=== PATIENT | male | born 1945 | race Caucasian/White ===

== ENCOUNTER 2020-05-30 10:21 | Inpatient (IN) | payer MEDICARE, BC ==
[~2020-05-30] VITALS: Ht 172.7 cm; Wt 104.3 kg
[2020-05-30 10:45] LABS: BASOPHILS % 0.9 % (0.0-1.0); EOSINOPHILS # (AUTO) 0.2 (0.0-0.4); EOSINOPHILS % 6.8 % (0.0-6.0); HEMATOCRIT 35.4 % (38.2-49.6); HEMOGLOBIN 12.1 g/dL (14.0-18.0); LYMPHOCYTES # (AUTO) 0.6 (1.0-3.2); LYMPHOCYTES % 16.5 % (18.0-39.1); MEAN CORPUSCULAR HEMOGLOBIN 34.6 pg (28-32); MEAN CORPUSCULAR HGB CONC 34.2 g/dL (31-35); MEAN CORPUSCULAR VOLUME 101.1 fL (81-99); MONOCYTES # (AUTO) 0.3 (0.2-0.8); MONOCYTES % 9.1 % (4.4-11.3); NEUTROPHILS # (AUTO) 2.2 (2.1-6.9); NEUTROPHILS % 64.6 % (38.7-80.0); PLATELET COUNT 159 x10e3/uL (140-360); RED CELL DISTRIBUTION WIDTH 13.5 % (11.7-14.4)
[2020-05-30] MEDS ORDERED: ASPIRIN 81 MG CHEW TAB PO ONE (10:45)
[2020-05-30] MEDS ORDERED: NITROGLYCERIN 0.4 MG SUBL SL PRN (10:45)
[2020-05-30] MEDS ORDERED: MORPHINE SULFATE 2 MG/ML SYR 1ML IV PRN (10:45)
[2020-05-30] MEDS ORDERED: ONDANSETRON HCL INJ 2MG/ML 2ML 2 MG/ML VIAL IV PRN (10:45)
[2020-05-30 11:02] LABS: INR 0.89; PROTHROMBIN TIME 12.5 seconds (11.9-14.5)
[2020-05-30 11:05] LABS: ALANINE AMINOTRANSFERASE 21 IU/L (0-55); ALBUMIN 4.3 g/dL (3.5-5.0); ALBUMIN/GLOBULIN RATIO 1.9 (0.8-2.0); ALKALINE PHOSPHATASE 82 IU/L (40-150); ANION GAP 15.5 mmol/L (8-16); BLOOD UREA NITROGEN 16 mg/dL (7-26); BUN/CREATININE RATIO 18 (6-25); CALCIUM 8.8 mg/dL (8.4-10.2); CARBON DIOXIDE 25 mmol/L (22-29); CHLORIDE 105 mmol/L (98-107); CREATININE, SERUM 0.91 mg/dL (0.72-1.25); EST GLOMERULAR FILTRATION RATE > 60 ML/MIN (60-); GLUCOSE 95 mg/dL (74-118); POTASSIUM 4.5 mmol/L (3.5-5.1); SODIUM 141 mmol/L (136-145)
[2020-05-30 11:22] LABS: PARTIAL THROMBOPLASTIN TIME 23.8 seconds (23.8-35.5)
--- NOTE | 2020-05-30 11:52 | Emergency Department Note ---
History of Present Illnes History of Present Illness Chief Complaint: Chest Pain History of Present Illness This is a 74 year old male pt c/o chest pressure that started this morning, pt states that he has had 6 episodes since this morning, intermittent chest pain that feels like a sudden sharp pain but goes away after a few seconds, pt denies taking ASA or NTG en route, sent by Dr. Pulido. Historian: Patient Arrival Mode: Car Sports Medicine Coordinator Required: No Onset (how long ago): hour(s) Location: right chest Quality: pain Radiation: Reports non-radiation Severity: moderate Timing of current episode: intermittent Progression: waxing and waning (lasts only seconds) Chronicity: recurrent Context: Denies recent illness Relieving factors: none Exacerbating factors: none Associated symptoms: Reports denies other symptoms Past Medical/Family History Physician Review I have reviewed the patient's past medical and family history. Any updates have been documented here. Past Medical History Recent Fever: No Clinical Suspicion of Infectio: No New/Unexplained Change in Ment: No Past Medical History: Hypertension, NH, CAD Other Medical History: Prostate Cancer 2015, Colon Cancer 2019 Past Surgical History: CABG Other Surgery: cardiac stents Social History Smoking Cessation: Former smoker Counseling Performed: No Alcohol Use: None Any Illegal Drug Use: No TB Exposure/Symptoms: No Physically hurt or threatened: No Family History Family history of heart diseas: No Other Any Pre-Existing Lines (PICC,: No Review of Systems Review of Systems Constitutional: Reports no symptoms EENTM: Reports no symptoms Cardiovascular: Reports as per HPI Respiratory: Reports no symptoms Gastrointestinal: Reports no symptoms Genitourinary: Reports no symptoms Musculoskeletal: Reports no symptoms Integumentary: Reports no symptoms Neurological: Reports no symptoms Psychological: Reports no symptoms Endocrine: Reports no symptoms Hematological/Lymphatic: Reports no symptoms Physical Exam Related Data Allergies: Coded Allergies: No Known Allergies (Unverified , 05/30/20) Triage Vital Signs Vital Signs Date Time Temp Pulse Resp B/P (MAP) Pulse Ox O2 Delivery O2 Flow Rate FiO2 05/30/20 10:28 63 17 148/88 98 Room Air 05/30/20 10:35 98.1 Vital signs reviewed: Yes Physical Exam CONSTITUTIONAL Constitutional: Present well-developed, Present well-nourished HENT HENT: Present normocephalic, Present atraumatic, Present oropharynx clear/moist, Present nose normal HENT L/R: Present left ext ear normal, Present right ext ear normal EYES Eyes: Reports PERRL, Reports conjunctivae normal NECK Neck: Present ROM normal PULMONARY Pulmonary: Present effort normal, Present breath sounds normal CARDIOVASCULAR Cardiovascular: Present regular rhythm, Present heart sounds normal, Present capillary refill normal, Present normal rate, Present other (no chest wall tenderness) GASTROINTESTINAL Abdominal: Present soft, Present nontender, Present bowel sounds normal GENITOURINARY Genitourinary: Present exam deferred SKIN Skin: Present warm, Present dry MUSCULOSKELETAL Musculoskeletal: Present ROM normal NEUROLOGICAL Neurological: Present alert, Present oriented x 3, Present no gross motor or sensory deficits PSYCHOLOGICAL Psychological: Present mood/affect normal, Present judgement normal Results Laboratory Result Diagram: 05/30/20 1040 05/30/20 1040 Laboratory Laboratory Tests Test 05/30/20 10:40 White Blood Count 3.40 x10e3/uL (4.8-10.8) Red Blood Count 3.50 x10e6/uL (4.3-5.7) Hemoglobin 12.1 g/dL (14.0-18.0) Hematocrit 35.4 % (38.2-49.6) Mean Corpuscular Volume 101.1 fL (81-99) Mean Corpuscular Hemoglobin 34.6 pg (28-32) Mean Corpuscular Hemoglobin Concent 34.2 g/dL (31-35) Red Cell Distribution Width 13.5 % (11.7-14.4) Platelet Count 159 x10e3/uL (140-360) Neutrophils (%) (Auto) 64.6 % (38.7-80.0) Lymphocytes (%) (Auto) 16.5 % (18.0-39.1) Monocytes (%) (Auto) 9.1 % (4.4-11.3) Eosinophils (%) (Auto) 6.8 % (0.0-6.0) Basophils (%) (Auto) 0.9 % (0.0-1.0) Neutrophils # (Auto) 2.2 (2.1-6.9) Lymphocytes # (Auto) 0.6 (1.0-3.2) Monocytes # (Auto) 0.3 (0.2-0.8) Eosinophils # (Auto) 0.2 (0.0-0.4) Basophils # (Auto) 0.0 (0.0-0.1) Absolute Immature Granulocyte (auto 0.07 x10e3/uL (0-0.1) Prothrombin Time 12.5 seconds (11.9-14.5) Prothromb Time International Ratio 0.89 Activated Partial Thromboplast Time 23.8 seconds (23.8-35.5) Sodium Level 141 mmol/L (136-145) Potassium Level 4.5 mmol/L (3.5-5.1) Chloride Level 105 mmol/L (98-107) Carbon Dioxide Level 25 mmol/L (22-29) Anion Gap 15.5 mmol/L (8-16) Blood Urea Nitrogen 16 mg/dL (7-26) Creatinine 0.91 mg/dL (0.72-1.25) Estimat Glomerular Filtration Rate > 60 ML/MIN (60-) BUN/Creatinine Ratio 18 (6-25) Glucose Level 95 mg/dL (74-118) Calcium Level 8.8 mg/dL (8.4-10.2) Total Bilirubin 0.7 mg/dL (0.2-1.2) Aspartate Amino Transf (AST/SGOT) 25 IU/L (5-34) Alanine Aminotransferase (ALT/SGPT) 21 IU/L (0-55) Alkaline Phosphatase 82 IU/L (40-150) Creatine Kinase MB 4.10 ng/mL (0-5.0) Troponin I 0.006 ng/mL (0-0.300) B-Type Natriuretic Peptide 25.9 pg/mL (0-100) Total Protein 6.6 g/dL (6.5-8.1) Albumin 4.3 g/dL (3.5-5.0) Globulin 2.3 g/dL (2.3-3.5) Albumin/Globulin Ratio 1.9 (0.8-2.0) Lab results reviewed: Yes Imaging Imaging results reviewed: Yes Procedures 12 Lead ECG Interpretation ECG Interpretation : ECG: ECG 1 Sports Medicine Coordinator: Interpreted by ED physician Date: May 30, 2020 Time: 10:23 Prior ECG tracings: reviewed Rhythm: sinus rhythm (with 1st degree AVB) Rate: normal BPM: 63 QRS axis: normal ST segments normal: Yes T wave inversion: III Q waves: III Clinical Impression: abnormal ECG Additional Comments poor RWP Assessment & Plan Medical Decision Making MDM chest pain with h/o CAD stents in LAD and known lesions in RCA which were not stented at that time (~60%) - cbc, chem, ecg, cardiacs, cxr - r/o STEMI/NSTEMI, non-cardiac causes, pneumonia Reassessment Reassessment admit to Dr Pulido who came to ER to see pt Assessment & Plan Final Impression: (1) Chest pain Depart Disposition: ADMITTED Last Vital Signs Date Time Temp Pulse Resp B/P (MAP) Pulse Ox O2 Delivery O2 Flow Rate FiO2 05/30/20 10:35 98.1 65 14 154/87 98 05/30/20 10:28 Room Air KIERRA STORM MD May 30, 2020 11:52
[2020-05-30 12:04] LABS: CREATINE KINASE 150 IU/L (30-200)
[2020-05-30] MEDS ORDERED: [UNRECOGNIZED DRUG - OTHER] PO (12:24)
[2020-05-30] MEDS ORDERED: B COMPLEX1 EACH PO (12:24)
[2020-05-30] MEDS ORDERED: PRAVASTATIN SOD40 MG PO (12:24)
[2020-05-30] MEDS ORDERED: NEXIUM20 MG PO (12:24)
[2020-05-30] MEDS ORDERED: LOSARTAN POTASS25 MG PO (12:24)
[2020-05-30] MEDS ORDERED: FLOMAX0.4 MG PO (12:24)
[2020-05-30] MEDS ORDERED: PRAVACHOL40 MG PO (12:24)
[2020-05-30 13:35] VITALS: BP 182/75
--- NOTE | 2020-05-30 13:35 | NUR ---
Received patient from ER. Denies chesp pain at this time, denies nausea. Respiration even and unlabored without SOB. Call light in reach.
--- NOTE | 2020-05-30 14:03 | Diagnostic Imaging Report ---
EXAMINATION: CHEST SINGLE (PORTABLE) INDICATION: ^CP ^[id number] ^1104 COMPARISON: None FINDINGS: TUBES and LINES: None. LUNGS: Normal lung volumes. Lungs are clear. No consolidations. PLEURA: No pleural effusion or pneumothorax. HEART AND MEDIASTINUM: Mildly enlarged cardiac silhouette, may be accentuated by radiographic technique. Otherwise, mediastinum is unremarkable. BONES AND SOFT TISSUES: No acute osseous lesion. Soft tissues are unremarkable. UPPER ABDOMEN: No free air under the diaphragm. IMPRESSION: 1. Mildly enlarged cardiac silhouette, may be exaggerated by radiographic technique. 2. Lungs are clear. Signed by: Dr. Ed Rincon M.D. on 05/30/2020 2:00 PM
[2020-05-30 14:11] LABS: LYMPHOCYTES % (MANUAL) 16 % (19-48); MONOCYTES % (MANUAL) 9 % (3.4-9.0)
[2020-05-30 14:12] LABS: EOSINOPHILS % (MANUAL) 5 % (0-7)
[2020-05-30 14:13] LABS: BAND NEUTROPHILS % (MANUAL) 6 %
[2020-05-30 14:14] LABS: NEUTROPHILS % (MANUAL) 64 % (40-74); PLATELET ESTIMATE ADEQUATE; PLATELET MORPHOLOGY COMMENT NORMAL; RBC MORPHOLOGY COMMENT NORMAL
[2020-05-30 15:45] VITALS: BP 127/71
[2020-05-30 20:00] VITALS: BP 142/75
--- NOTE | 2020-05-30 20:02 | NUR ---
RECEIVED PT IN CHAIR ,AOX3 RESPIRATIONS ARE EVEN AND UNLABORED DENIES CHEST PAIN AT THIS TIME , CALL LIGHT WITH IN REACH ,CONTINUE TO MONITOR
[2020-05-30 20:15] VITALS: BP 127/71
[2020-05-30 20:34] LABS: CREATINE KINASE MB 2.9 ng/mL (0-5.0)
[2020-05-30] MEDS: FAMOTIDINE 20 MG/2 ML VIAL IV SCH (21:10)
[2020-05-31] VITALS: BP 138/75
[2020-05-31 00:57] LABS: CREATINE KINASE MB 2.3 ng/mL (0-5.0)
[2020-05-31 04:00] VITALS: BP 139/59
--- NOTE | 2020-05-31 06:54 | NUR ---
PT DENIES CHEST PAIN ,NO ACUTE DISTRESS NOTED ,BEDSIDE REPORT GIVEN TO THE ON COMING NURSE
[2020-05-31 07:23] LABS: BASOPHILS % 0.9 % (0.0-1.0); EOSINOPHILS # (AUTO) 0.2 (0.0-0.4); HEMATOCRIT 34.9 % (38.2-49.6); HEMOGLOBIN 11.6 g/dL (14.0-18.0); LYMPHOCYTES # (AUTO) 0.6 (1.0-3.2); LYMPHOCYTES % 14.5 % (18.0-39.1); MEAN CORPUSCULAR HEMOGLOBIN 33.8 pg (28-32); MEAN CORPUSCULAR HGB CONC 33.2 g/dL (31-35); MEAN CORPUSCULAR VOLUME 101.7 fL (81-99); MONOCYTES # (AUTO) 0.3 (0.2-0.8); MONOCYTES % 7.5 % (4.4-11.3); NEUTROPHILS # (AUTO) 3.2 (2.1-6.9); NEUTROPHILS % 71.4 % (38.7-80.0); PLATELET COUNT 154 x10e3/uL (140-360); RED BLOOD COUNT 3.43 x10e6/uL (4.3-5.7); RED CELL DISTRIBUTION WIDTH 13.5 % (11.7-14.4)
[2020-05-31 07:43] LABS: ALANINE AMINOTRANSFERASE 18 IU/L (0-55); ALBUMIN/GLOBULIN RATIO 1.9 (0.8-2.0); ALKALINE PHOSPHATASE 81 IU/L (40-150); ANION GAP 14.2 mmol/L (8-16); BLOOD UREA NITROGEN 16 mg/dL (7-26); BUN/CREATININE RATIO 19 (6-25); CALCIUM 8.6 mg/dL (8.4-10.2); CARBON DIOXIDE 26 mmol/L (22-29); CHLORIDE 104 mmol/L (98-107); CHOL/HDL RATIO 4.3 (3.9-4.7); CHOLESTEROL 179 MD/DL (0-199); CREATININE, SERUM 0.86 mg/dL (0.72-1.25); EST GLOMERULAR FILTRATION RATE > 60 ML/MIN (60-); GLUCOSE 90 mg/dL (74-118); HDL CHOLESTEROL 42 MG/DL (40-60); LDL CHOLESTEROL 84 MG/DL (60-130); POTASSIUM 4.2 mmol/L (3.5-5.1); SODIUM 140 mmol/L (136-145); TRIGLYCERIDES 267 MG/DL (0-149)
[2020-05-31 08:05] VITALS: BP 135/77
[2020-05-31] MEDS: FAMOTIDINE 20 MG/2 ML VIAL IV SCH (08:29)
[2020-05-31 08:30] VITALS: BP 135/77
--- NOTE | 2020-05-31 09:48 | History and Physical ---
INDICATION: Chest pain. HISTORY OF PRESENT ILLNESS: Mr. Danielson is a 74-year-old gentleman, well known to me for several years with coronary artery disease, previous LAD stent, hypertension, hyperlipidemia, who awoke from night with severe substernal chest pressure. This pain was recurrent on an ongoing basis. He called me and he was referred to the emergency room. EKG shows new ST changes and depression. Cardiac troponin was normal. BNP was normal. Kidney functions normal. Hemoglobin 11.6. Chest x-ray showed no abnormalities. PAST MEDICAL HISTORY: Coronary artery disease. SOCIAL HISTORY: The patient does not smoke or drink. He is accompanied with his daughter. ALLERGIES: NO KNOWN DRUG ALLERGIES. REVIEW OF SYSTEMS: Negative except as dictated in the history of present illness. PHYSICAL EXAMINATION: VITAL SIGNS: Afebrile, heart rate 64, blood pressure 139/59, O2 saturation is 99%. CARDIOVASCULAR: Regular rhythm, S4 gallop. LUNGS: Clear to auscultation bilaterally. ABDOMEN: Soft, bowel sounds are adequately, pedal pulses are 2+, and 1+ edema. NEURO: The patient is alert, in mild distress. Neurological system exam is normal. No carotid bruits. LABS/IMAGING: Reviewed and as described above. ASSESSMENT: Pit-IM-[id number] elevation myocardial infarction. RECOMMENDATIONS: Mr. Danielson will be admitted as an inpatient. Recheck of cardiac enzymes, rule out myocardial infarction. He does have new EKG changes and has known intermediate right coronary artery stenosis, which was between 60% and 70% at previous presentation. At this point, coronary angiography is indicated. Risks, benefits, and alternatives of this procedure were discussed with the patient. He is agreeable for the same. MD LELO Baig/ALFREDO /[id number]
[2020-05-31 11:34] VITALS: BP 136/68
--- NOTE | 2020-05-31 12:00 | NUR ---
Spoke with Tracy Rivero NP of Dr. Pulido and verbal order to discharge the patient today.
--- NOTE | 2020-05-31 12:03 | Progress Note ---
DATE: Cardiology Progress Note SUBJECTIVE: The patient reports feeling better. He denies any current chest pain. He does report occasional pain in his right breast. Denies any palpitation or shortness of breath. OBJECTIVE: VITAL SIGNS: Temperature 97.6, pulse 59, respiratory rate 20, blood pressure 135/77, oxygen saturation 98% on room air. GENERAL: Alert and oriented x3. Resting comfortably in the chair. Does not appear to be in any acute distress. NECK: Supple. No JVD noted. CARDIOVASCULAR: Regular rate and rhythm. S4 gallop noted. No murmurs. LUNGS: Clear to auscultation throughout. ABDOMEN: Soft, nontender. EXTREMITIES: Lower extremity 2+ pedal pulses. No edema. CARDIOVASCULAR MEDICATIONS: Not continued at this time. We will renew. LABORATORY DATA: WBC 4.41, hemoglobin 11.6, hematocrit 34.9, platelets 154. Sodium 140, potassium 4.2, BUN 16, creatinine 0.86, AST 20, ALT 18. ASSESSMENT: 1. Coronary artery disease with complaints of chest pain. 2. Right breast pain. 3. Hypertension. RECOMMENDATIONS: Cardiac enzymes have ruled out acute myocardial infarction at this time. Given patient reporting of recently working on his garage the last few days before the right sided pain started. We will discharge this patient at this time. However, given his known right coronary artery stenosis of about 60% to 70% this patient will be followed as outpatient and we will evaluate any need for coronary angiogram. We will continue to monitor this patient very closely, but may be discharged. Dictated by Tracy Harvey, MANAGER INTERFACE Antwan Pulido MD JWV/MODL /[id number]
--- NOTE | 2020-05-31 13:05 | NUR ---
Discharge education provided emphasizing the need for follow-up appointment with Dr. Pulido this week. Verbalized understanding. Discharge packet given. PIV to right AC removed, catheter tip intact, no bleeding noted. Transported via wheelchair to private vehicle with all personal belongings taken.
--- OUTSIDE RECORDS SUMMARY | 2020-06-07 13:57 | XMS REPORT | Clinical Summary ---
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 Active co-enzyme Q-10 30 mg Take 100 mg 0 capsule by mouth daily. Active pravastatin (PRAVACHOL) Take 1 tablet 0 40 MG tablet by mouth daily. Active tamsulosin (FLOMAX) 0.4 Take 0.4 mg 0 mg capsule,extended by mouth release 24hr every morning. Active esomeprazole (NexIUM) 20 Take 20 mg by 0 MG capsule mouth daily before breakfast. Active losartan-hydrochlorothiaz Take 1 tablet 3 hai (HYZAAR) 50-12.5 mg by mouth 9 per tablet daily. Active sildenafil (VIAGRA) 100 Take 100 mg 0 MG tablet by mouth as 9 needed. Active antiox.mv Take 1 0 no.10/omeg3s/lut/harpreet capsule by (I-CAPS ORAL) mouth daily. Active BIOTIN ORAL Take 1 0 capsule by mouth daily. Active VITAMIN B COMPLEX ORAL Take by 0 mouth. 08/22/2019 Discontinued lisinopril Take 10 mg by 0 (PRINIVIL,ZESTRIL) 10 mg mouth daily. tablet 08/05/2019 traMADol (ULTRAM) 50 mg Take 1 tablet 20 tablet 0 tabletIndications: acute (50 mg total) 9 pain by mouth every 6 (six) hours as needed for moderate pain for up to 14 days .Acute Pain. 09/08/2019 ciprofloxacin (CIPRO) 500 Take 1 tablet 6 tablet 0 MG tablet (500 mg 9 total) by mouth 2 (two) times a day for 3 days. 09/10/2019 oxybutynin (DITROPAN) 5 Take 1 tablet 15 tablet 0 09/05/201 MG tablet (5 mg total) 9 by mouth 3 (three) times a day as needed for bladder spasms for up to 5 days. Active Problems Not on file Encounters Care Team Description Date Type Specialty Desirae Koch MD Mitchell, Alison Joy, TRA 09/05/2019 Anesthesia Urology Event Joshua Duque MD CYSTO, WITH DIRECT VISION INTERNAL URETH ROTOMY 09/05/2019 Surgery Urology Joshua Duque MD 09/05/2019 Hospital Urology Encounter Weston Sevilla MD Goldfarb, David W., MD Pre-op testing (Primary Dx) 08/22/2019 Pre-Admit Pre-Admission Testi ng Testing Appointment Weston Koroma MD Felan, Veronica Lynn, NP 07/22/2019 Anesthesia General Surgery Event William Roper MD PORTACATH REMOVAL 07/22/2019 Surgery General Surgery [place] 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 Hospital General Surgery Encounter after 05/30/2019 Family History Medical History Relation Name Comments Heart attack Brother Cancer Brother liver cancer Heart disease Father Cancer Maternal colon Grandmother Cancer Mother colon Relation Name Status Comments Brother Brother Father Maternal Grandmother Mother Social History Date Tobacco Use Types Packs/Day Years Used Quit: 01/28/1969 Former Smoker Cigarettes 1 5 Smokeless Tobacco: Never Used Drinks/Week oz/Week Comments Alcohol Use 21-28 Standard drinks or equivalent 21.0 - 28.0 last drink pt stat es was about 6 months ago 02/2019 Not Currently Alcohol Habits Answer Date Recorded How often do you have a drink containing alcohol? 4 or mor e times a week 03/04/2019 How many drinks containing alcohol do you have on 3 or 4 03/04/2019 a typical day when you are drinking? How often do you have six or more drinks on one Daily or a lmost daily 03/04/2019 occasion? Sex Assigned at Date Recorded Not on file Last Filed Vital Signs Reading Time Taken Comments Vital Sign 142/67 09/05/2019 9:54 AM REAL ESTATE LEGAL SECRETARY Blood Pressure 57 09/05/2019 9:54 AM REAL ESTATE LEGAL SECRETARY Pulse 36.6 C (97.9 F) 09/05/2019 9:54 AM REAL ESTATE LEGAL SECRETARY Temperature 16 09/05/2019 9:54 AM REAL ESTATE LEGAL SECRETARY Respiratory Rate 94% 09/05/2019 9:54 AM REAL ESTATE LEGAL SECRETARY Oxygen Saturation - - Inhaled Oxygen Concentration 100 kg (221 lb 8 oz) 09/05/2019 6:36 AM REAL ESTATE LEGAL SECRETARY Weight 172.7 cm (5' 8") 08/22/2019 11:00 AM REAL ESTATE LEGAL SECRETARY Height 33.68 08/22/2019 11:00 AM REAL ESTATE LEGAL SECRETARY Body Mass Index Plan of Treatment Health Maintenance Due Date Last Done Comments SHINGLES VACCINES (#1) 1995 INFLUENZA VACCINE 04/11/2020 05/22/2018, 09/02/2017 COLONOSCOPY SCREENING 01/29/2024 01/28/2019 65+ PNEUMOCOCCAL VACCINE Completed 06/11/2019 Implants Device Identifier Shelf Expiration Date Model / Serial / L ot Implanted Type Area Manufactur er 12/09/2021 [id number] / / [id number] Port Injctbl Smart Port Ct W/ Dtchd Implantabl N/A: N/A ANGIODYNAM Silicon Cath 7.5fr - [id number] Infusion ICS IN C Implanted: Qty: 1 on 03/04/2019 by [place], William Floyd MD at [facility] s Procedures Comments Procedure Name Priority Date/Time Associated Diag nosis UT AN ELECTIVE Routine 09/05/2019 SUPRAGLOTTIC AIRWAY 8:01 AM REAL ESTATE LEGAL SECRETARY EXAM UNDER ANESTHESIA 09/05/2019 Urethral strict ure in 7:51 AM REAL ESTATE LEGAL SECRETARY male Case Notes ERINN W/ DR. AMADOR WORKING 2ND EST ? , YAMINI WORKIGN 1ST EST 1 HR Special Needs COMBPaul Duval/ DR. AMADOR WORKING 2ND EST 1 HR , YAMINI WORKIGN 1ST EST 1 HR CYSTO, WITH DIRECT VISION 09/05/[address] ricture in INTERNAL URETHROTOMY 7:51 AM REAL ESTATE LEGAL SECRETARY male Case Notes ERINN W/ DR. AMADOR WORKING 2ND EST ? , YAMINI WORKIGN 1ST EST 1 HR Special Needs ERINN Duval/ DR. AMADOR WORKING 2ND EST 1 HR , YAMINI WORKIGN 1ST EST 1 HR GRAM STAIN Routine 08/22/2019 3:10 PM REAL ESTATE LEGAL SECRETARY URINE CULTURE Routine 08/22/2019 3:10 PM REAL ESTATE LEGAL SECRETARY URINALYSIS SCREEN AND Routine 08/22/2019 Pre-op t esting MICROSCOPY, WITH REFLEX 11:29 AM REAL ESTATE LEGAL SECRETARY TO CULTURE ECG PRE/POST OP Routine 08/22/2019 Pre-op testing 11:27 AM REAL ESTATE LEGAL SECRETARY ESTIMATED GFR Routine 08/22/2019 11:13 AM REAL ESTATE LEGAL SECRETARY COMPREHENSIVE METABOLIC Routine 08/22/2019 Pre-op testing PANEL 11:13 AM REAL ESTATE LEGAL SECRETARY HC COMPLETE BLD COUNT Routine 08/22/2019 Pre-op t esting W/AUTO DIFF 11:13 AM REAL ESTATE LEGAL SECRETARY SURGICAL PATHOLOGY Routine 07/22/2019 REQUEST 3:13 PM REAL ESTATE LEGAL SECRETARY ANESTHESIA INTUBATION Routine 07/22/2019 1:18 PM REAL ESTATE LEGAL SECRETARY REMOVAL, TUNNELED CENTRAL 07/22/2019 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) PORT, WITHOUT C-ARM FLUOROSCOPIC GUIDANCE after 05/30/2019 Results * Airway (09/05/2019 8:01 AM REAL ESTATE LEGAL SECRETARY) Narrative Performed At Soledad Kirby 09/05/20 19 8:02 AM Airway Performed by: Soledad Kirby Authorized by: Desirae Koch MD Location: OR Urgency: Elective Difficult Airway: No Performed by: resident/GL ACCOUNTANT/AA Preoxygenated with 100% O2: Yes Mask Ventilation: Not attempted Final Airway Type: Supraglottic airwa y Final LMA: I-Gel LMA Size: 5 Number of Attempts at Approach: 1 * Gram stain (08/22/2019 3:10 PM REAL ESTATE LEGAL SECRETARY) Gram stain No WBC's or organisms seen. [place] result Comment: [facility] Specimen Information HOSPITAL Specimen Source: Urine Specimen Site: Clean catch Specimen Urine Performing Organization Address City/State/ZIP Code P brittany Number [facility] DEPARTMENT OF [address] [place] [address] PATHOLOGY AND GENOMIC MEDICINE [place] [address] [place] [id number] HOSPITAL * Urine culture (08/22/2019 3:10 PM REAL ESTATE LEGAL SECRETARY) Urine culture No growth after 24 hours [place] isolate Comment: ORTH[facility]OX Specimen Information HOSPITAL Specimen Source: Urine Specimen Site: Clean catch Specimen Urine Performing Organization Address [facility] Code P brittany Number [facility] [place] [address] PATHOLOGY AND GENOMIC MEDICINE [address] * Urinalysis screen and microscopy, with reflex to culture (08/22/2019 11:29 AM REAL ESTATE LEGAL SECRETARY) Specimen site Clean catch [facility] Color, UA Becky [facility] Appearance, UA Clear [facility] Specific 1.015 1.001 - 1.035 [place] gravity, [facility] pH, UA 7.0 5.0 - 8.5 [facility] Protein, UA Negative Negative [facility] Glucose, UA Negative Negative [facility] Ketones, UA Negative Negative [facility] Bilirubin, UA Negative Negative [facility] Blood, UA Negative Negative [facility] Nitrite, UA Positive (A) Negative [facility] Urobilinogen, 4.0 (A) <2.0 [facility] Leukocyte Negative Negative [place] esterase, [facility] Epithelial 1 /HPF [place] cells, [facility] WBC, UA 3 (H) 0 - 1 /HPF [facility] RBC, UA 1 0 - 5 /HPF [facility] Bacteria, UA Few None seen [facility] Yeast, UA None seen [facility] Yeast with None seen [place] [facility] Spec[facility] Urine Performing Organization Address [facility] P brittany Number [facility] [place] [address] PATHOLOGY AND GENOMIC MEDICINE [address] * ECG Pre/Post Op (08/22/2019 11:27 AM REAL ESTATE LEGAL SECRETARY) Ventricular 59 [facility] rate Atrial rate 59 [facility] UT interval 364 [facility] QRSD interval 88 [facility] QT interval 406 [facility] QTC interval 401 [facility] P axis 1 43 [facility] QRS axis 1 49 [facility] T wave axis 38 [facility] EKG impression Sinus bradycardia with 1st [facility] degree AV block-Otherwise normal ECG-In automated comparison with ECG of 28-JAN-2019 18:07,-No significant change was found- Specimen Narrative Performed At This result has an attachment that is n ot available. Performing Organization Address City/State/ZIP Code P brittany Number [facility] MUSE [address] [place] [address] * Estimated GFR (08/22/2019 11:13 AM REAL ESTATE LEGAL SECRETARY) Pathologist [facility] Estimated GFR 73 mL/min/1.73 m2 [place] Comment: [facility] [place], operated by [facility] Interpretation G1 >=90 Normal or high G2 60-89 Mildly decreased G3a 45-59 Mildly to moderately decreased G3b 30-44 Moderately to severely decreased G4 15-29 Severely decreased G5 <15 Kidney failure The eGFR was calculated using the Chronic Kidney Disease Epidemiology Collaboration (CKD-EPI) equation. Interpretation is based on recommendations of the National Kidney Foundation-Kidney Disease Outcomes Quality Initiative (NKF-KDOQI) published in 2014. Specimen Plasma specimen Performing Organization Address [facility] P brittany Number [facility] OF [address] [place] [address] PATHOLOGY AND GENOMIC MEDICINE [address] * CBC with platelet and differential (08/22/2019 11:13 AM REAL ESTATE LEGAL SECRETARY) WBC 4.45 (L) 4.50 - 11.00 k/uL [facility] RBC 3.53 (L) 4.40 - 6.00 m/uL [facility] HGB 11.0 (L) 14.0 - 18.0 g/dL [facility] HCT 34.2 (L) 41.0 - 51.0 % [facility] MCV 96.9 82.0 - 100.0 fL [facility] MCH 31.2 27.0 - 34.0 pg [facility] MCHC 32.2 31.0 - 37.0 g/dL [facility] RDW - SD 45.4 37.0 - 55.0 fL [facility] MPV 9.4 8.8 - 13.2 fL [facility] Platelet count 179 150 - 400 k/uL [facility] Nucleated RBC 0.00 /100 WBC [facility] Neutrophils 69.4 (H) 39.0 - 69.0 % [facility] Lymphocytes 16.2 (L) 25.0 - 45.0 % [facility] Monocytes 7.2 0.0 - 10.0 % [facility] Eosinophils 6.1 (H) 0.0 - 5.0 % [facility] Basophils 0.7 0.0 - 1.0 % [facility] Immature 0.4Comment: "Immature 0.0 - 1.0 % [place] granulocytes granulocytes" (promyelocytes, METHOD IST myelocytes, metamyelocytes) HOSPITAL Specimen Blood Performing Organization Address City/State/ZIP Code P brittany Number [facility] DEPARTMENT OF [address] [place] [address] PATHOLOGY AND GENOMIC MEDICINE [address] * Comprehensive metabolic panel (08/22/2019 11:13 AM REAL ESTATE LEGAL SECRETARY) Sodium 139 135 - 148 mEq/L [facility] Potassium 4.1 3.5 - 5.0 mEq/L [facility] Chloride 102 98 - 112 mEq/L [facility] CO2 26 24 - 31 mEq/L [facility] Anion gap 11@ANIO 7 - 15 mEq/L [facility] BUN 15 8 - 23 mg/dL [facility] Creatinine 1.01 0.70 - 1.20 mg/dL [facility] Glucose 98 65 - 99 mg/dL [facility] Calcium 9.5 8.8 - 10.2 mg/dL [facility] Protein 6.9 6.3 - 8.3 g/dL [place] Comment: [place]TH[facility] Wnnjhdx5861.6-7.0 g/dL [facility] 1 ktac7062.4-7.6 g/dL 7 months-3wgpz761.1-7.3 g/dL 1-2 oogjo120.6-7.5 g/dL >3 akztz087.0-8.0 g/dL 18-0170337.3-8.3 g/dL Albumin 4.0 3.5 - 5.0 g/dL [facility] A/G ratio 1.4 0.7 - 3.8 [facility] Alkaline 87 40 - 129 U/L [place] phosphatase [facility] AST 16 10 - 50 U/L [facility] ALT 14 5 - 50 U/L [facility] Total bilirubin 0.4 0.0 - 1.2 mg/dL [facility] Specimen Plasma specimen Performing Organization Address City/[facility]/ZIP Code P brittany Number [facility] DEPARTMENT OF [address] [place] [address] PATHOLOGY AND GENOMIC MEDICINE [address] * Surgical pathology request (07/22/2019 3:13 PM REAL ESTATE LEGAL SECRETARY) [facility] DEPARTMENT OF PATHOLOGY AND GENOMIC MEDICINE Surgical See link below for PDF Lab [facility] DEPART [facility] pathology Report OF PATHOLOGY report AND GENOMIC MEDICINE Result status This is Final Report for [facility] DEPARTME NT [id number] OF PATHOLOGY AND GENOMIC MEDICINE Specimen Performing Organization Address [facility] P brittany Number [facility] DEPARTMENT OF [address] [place] [address] PATHOLOGY AND GENOMIC MEDICINE * Airway (07/22/2019 1:18 PM REAL ESTATE LEGAL SECRETARY) Narrative Performed At Neema Prado CRNA 07/22/2019 1:19 PM Airway Date/Time: 07/22/2019 12:56 PM Performed by: Neema Prado CRNA Authorized by: Weston Koroma MD Location: OR Preoxygenated with 100% O2: Yes Mask Ventilation: Assisted mask (OPA) Final Airway Type: Supraglottic airwa y Final LMA: I-Gel LMA Size: 5 Number of Attempts at Approach: 1 Preoxygenation >3 min Eyes taped at LOC Gentle mask ventilation with OPA Easy, atraumatic iGel placement Dentition unchanged and intact after 05/30/2019 Insurance Type Payer Benefit Subscriber ID Effective Phone Address Plan / Dates Group Commercial BCBS COMMERCIAL BCBS [id number] 2015-P MEDICARE resent SUPPLEMENT Medicare MEDICARE MEDICARE [id number] 2010-P [place], PART A AND resent [place] B Advance Directives For more information, please contact: [phone] 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
--- OUTSIDE RECORDS SUMMARY | 2020-06-07 13:57 | XMS REPORT | Continuity of Care Document ---
Author Author [facility] t Organization [facility] Address [address] [place] [address] Phone Unavailable Care Team Providers Care Wan Support Specialist Name Role Phone Jordana MENDOZA PCP Unavailable Nate NIEVES Attphys Unavailable CHELSEA BAXTER Attphys Unavailable Neto VIDALES, Beth Lewis Attphys August VIDALES, Genoveva Merrill Attphys [phone] Real PARTNER, Callie Simms Attphys Di VIDALES, Meera Ontiveros Attphys Everett Roper MD Attphys Ga VIDALES, Kilo Ontiveros Attphys Alejandra PARTNER, Chelo Horowitz Attphys CHELSEA BAXTER Admphys Unavailable ELLIOTT KC Admphyalyson Unavailable JONES ROPER Admphys Unavailable Payers Payer Name Policy Type Policy Number Effective Date Expiration Date S chichi MEDICARE PART A AND B [id number] 2010 00:00:00 BCBS NON CONTRACTED [id number] 2015 00:00:00 [facility] [id number] 1998 00:00:00 [facility] Medicare A & B [id number] [facility] BCBS COMMERCIALBCBS MEDICARE [id number] 2015- PresentCommercial [id number] 2015 00:00:00 Kirk Torrez MEDICAREMEDICARE PART A AND [id number] 2010-[place]HOUS [place], [place] [id number] 2010 00:00:00 Kirk Torrez Problems Condition Name Condition Details Condition Category Status Onset Date Resolution Date Last Treatment Date Treating Clinician Comments Source Chest pain Problem Active [facility] Allergies, Adverse Reactions, Alerts This patient has no known allergies or adverse reactions. Family History Family Member Diagnosis Comments Start Date Stop Date Source Natural brother Heart attack Kirk Nondenominational Natural brother Cancer Kirk Samaniego ethodist Natural father Heart disease Kirk Torrez Maternal grandmother Cancer [facility] jerrod Nondenominational Natural mother Cancer [place] [facility] Social History Social Habit Start Date Stop Date Quantity Comments Source Sex Assigned At Nigel rebolledo Nondenominational Cigarettes smoked current (pack per day) - Reported 00:00:00 2019-09-09 00:00:00 Bradley Nondenominational Cigarette pack-years 2019-09-09 00:00:00 2019-09-09 00:00:00 Bradley Nondenominational Tobacco use and exposure 2019-09-09 00:00:00 2019-09-09 00:00:00 Josettee r used [place] Nondenominational Alcohol intake 2019-09-09 00:00:00 2019-09-09 00:00:00 Ex-drinker (fi nding) [place] [facility]ominational Alcohol Comment 2019-08-22 00:00:00 2019-08-22 00:00:00 last dri nk pt states was about 6 months ago 02/2019 [place] Nondenominational History SDOH Alcohol Frequency 2019-03-04 00:00:00 2019-03-04 00:00:0 0 5 [place] Nondenominational History SDOH Alcohol Std Drinks 2019-03-04 00:00:00 2019-03-04 00:00: 00 2 [facility] History SDOH Alcohol Binge 2019-03-04 00:00:00 2019-03-04 00:00:00 5 [place] Nondenominational History of tobacco use 1969-01-28 00:00:00 Current smoker Kirk Torrez Smoking Status Start Date Stop Date Source Former smoker 2019-09-09 00:00:00 2019-09-09 00:00:00 Kirk Torrez Medications Ordered Medication Name Filled Medication Name Start Date Stop Da te Current Medication? Ordering Clinician Indication Dosage Frequency Signature (SIG) Comments Components Source aspirin 81 mg chewable tablet 2019-09-05 11:16:25 Yes 81mg QD Chew 81 mg daily. Kirk Torrez co-enzyme Q-10 30 mg capsule 2019-09-05 11:16:25 Yes 100mg QD Take 100 mg by mouth daily. Kirk Torrez pravastatin (PRAVACHOL) 40 MG tablet 2019-09-05 11:16:25 Ye s 1{tbl} QD Take 1 tablet by mouth daily. Kirk Samaniego ethjeffery tamsulosin (FLOMAX) 0.4 mg capsule,extended release 24hr 2019-09-05 11:16:25 Yes .4mg QD Take 0.4 mg by mouth every morni ng. Kirk Torrez esomeprazole (NexIUM) 20 MG capsule 2019-09-05 11:16:25 Yes 20mg QD Take 20 mg by mouth daily before breakfast. Ishan Torrez antiox.mv no.10/omeg3s/lut/harpreet (I-CAPS ORAL) 2019-09-05 11:16:25 Yes 1{capsule} QD Take 1 capsule by mouth daily. Kirk Torrez BIOTIN ORAL 2019-09-05 11:16:25 Yes 1{caps ule} QD Take 1 capsule by mouth daily. Kirk Torrez VITAMIN B COMPLEX ORAL 2019-09-05 11:16:25 Yes Take by mouth. Kirk Torrez oxybutynin (DITROPAN) 5 MG tablet 2019-09-05 00:00:00 2018 23:59:00 No 5mg Q.[id number] Take 1 ta blet (5 mg total) by mouth 3 (three) times a day as needed for bladder spasms for up to 5 days. Kirk Torrez ciprofloxacin (CIPRO) 500 MG tablet 2019-09-05 00:00:0 0 2019-09-08 23:59:00 No 500mg Q.5D Take 1 tablet ( 500 mg total) by mouth 2 (two) times a day for 3 days. Kirk Torrez lisinopril (PRINIVIL,ZESTRIL) 10 mg tablet 08-22 10:57:18 2019-08-22 00:00:00 No 10mg QD Take 10 mg by mouth daily. Kirk Torrez traMADol (ULTRAM) 50 mg tablet 2019-07-22 00:00:00 2019-07-13 5 23:59:00 No acute pain 50mg Q6H Take 1 tablet (50 mg total) by mouth every 6 (six) hours as needed for moderate pain for up to 14 days .Acute Pain. Kirk Torrez sildenafil (VIAGRA) 100 MG tablet 2019-01-16 00:00:00 Yes 100mg Take 100 mg by mouth as needed. Kirk jones losartan-hydrochlorothiazide (HYZAAR) 50-12.5 mg per tablet 2019-01-09 00:00:00 Yes 1{tbl} QD Take 1 tablet by mouth daily. Kirk Torrez Esomeprazole Magnesium (Nexium) 20 Mg CAPSULE.DR Mancilla prazole Magnesium (Nexium) 20 Mg CAPSULE. Yes 20 Daily [facility] Losartan Potassium Losartan Potassium Yes 12.5 [facility] Multivitamin Eye Multivitamin Eye Yes 1 Daily [facility] Pravastatin Sodium Pravastatin Sodium Yes 40 [facility] Pravastatin Sodium (Pravachol) 40 Mg TABLET Pravastati n Sodium (Pravachol) 40 Mg TABLET Yes 40 Bedtime [facility] Tamsulosin Hcl (Flomax*) 0.4 Mg CAP Tamsulosin Hcl (Flomax*) 0.4 Mg C AP Yes .4 Daily [facility] Vitamin B Complex (B Complex) 1 Each TABLET Vitamin B Complex (B Complex) 1 Each TABLET Yes 1 Daily [facility] Vital Signs Vital Name Observation Time Observation Value Comments Source Body Temperature 2020-05-31 11:34:00 97.9 [degF] [facility] BMI (Body Mass Index) 2020-05-31 00:29:00 35.0 kg/m2 [facility] Weight 2020-05-30 10:28:00 230 [lb_av] [facility] Systolic blood pressure 2019-09-05 09:54:00 142 mm[Hg] Kirk Torrez Diastolic blood pressure 2019-09-05 09:54:00 67 mm[Hg] Kirk Torrez Heart rate 2019-09-05 09:54:00 57 /min Kirk Torrez Body temperature 2019-09-05 09:54:00 36.61 Angelita Ricky rodriguez Nondenominational Respiratory rate 2019-09-05 09:54:00 16 /min Ricky jerrod Nondenominational Oxygen saturation in Arterial blood by Pulse oximetry 2018-09 09:54:00 94 /min Kirk Torrez Body weight 2019-09-05 06:36:00 100.472 kg Kirk Torrez BMI 2019-09-05 06:36:00 33.68 kg/m2 Kirk Torrez Body height 2019-08-22 11:00:00 172.7 cm Kirk Torrez Procedures Procedure Date / Time Performed Performing Clinician Tobin BEY AN ELECTIVE SUPRAGLOTTIC AIRWAY 2019-09-05 08:01:55 Jose Alejandro Kirby CYSTO, WITH DIRECT VISION INTERNAL URETHROTOMY 2019-09-05 07 :51:00 Elliott Kc EXAM UNDER ANESTHESIA 2019-09-05 07:51:00 Markell Orozco [facility] Nondenominational URINE CULTURE 2019-08-22 15:10:00 Demi Noble GRAM STAIN 2019-08-22 15:10:00 Demi Noble URINALYSIS SCREEN AND MICROSCOPY, WITH REFLEX TO CULTURE 201 05-23-12 11:29:00 Demi Noble ECG PRE/POST OP 2019-08-22 11:27:00 Demi Noble HC COMPLETE BLD COUNT W/AUTO DIFF 2019-08-22 11:13:00 Demi Noble COMPREHENSIVE METABOLIC PANEL 2019-08-22 11:13:00 Marisol Noble ESTIMATED GFR 2019-08-22 11:13:00 Demi Noble SURGICAL PATHOLOGY REQUEST 2019-07-22 15:13:00 Jones Roper ANESTHESIA INTUBATION 2019-07-22 13:18:31 Neema Praod REMOVAL, TUNNELED CENTRAL VENOUS CATHETE R WITH PORT, WITHOUT C-ARM FLUOROSCOPIC GUIDANCE 2019-07-22 12:49:00 Jones Roper Plan of Care Planned Activity Planned Date Details Comments Source Future Scheduled Test 2024-01-29 00:00:00 COLONOSCOPY SCREEN ING [code = COLONOSCOPY SCREENING] [facility] Future Scheduled Test 2020-04-11 00:00:00 INFLUENZA VACCINE [code = INFLUENZA VACCINE] [facility] Future Scheduled Test 1995 00:00:00 SHINGLES VACCINES (#1) [code = SHINGLES VACCINES (#1)] [facility] Instructions COVID-19: 11/25/2019 [facility] Instructions Chest Pain - Chest Wall [facility] Encounters Start Date/Time End Date/Time Encounter Type Admission Type [facility] Care Department Encounter ID Source 2021-03-17 00:00:00 2021-03-17 00:00:00 Outpatient SHON ADAMS MDA, MDA [id number] MD Ash 2020-05-30 10:39:00 2020-05-31 13:05:00 Discharged Inpatient 1 CHELSEA BAXTER [facility] [id number] [facility] 2020-03-17 13:17:32 2020-03-17 13:17:32 Outpatient SHON ADAMS MDA, MDA [id number] MD Ash 2020-03-17 09:30:00 2020-03-17 09:30:00 Outpatient SHON ADAMS MDA, MDA [id number] Mihir 2019-09-05 00:00:00 2019-09-05 00:00:00 Outpatient ARELY KC [facility] 021 [id number] [facility] 2019-07-22 00:00:00 2019-07-22 00:00:00 Outpatient BRIGHT ROPER [facility] 021 [id number] [facility] Results Test Description Test Time Test Comments Results Result Comments Source Blood leukocytes automated count (number/volume) 2020-05-31 05:35:00 Test Item White Blood Count (test code = 6690-2) 4.41 4.8-10.8 [facility] automated count (number/volume)2020-05-31 05:35:00* Test Item Value Reference Range Interpretation Comments Red Blood Count (test code = 789-8) 3.43 4.3-5.7 [facility] hemoglobin measurement (moles/volume)2020-05-31 05:35:00* Test Item Value Reference Range Interpretation Comments Hemoglobin (test code = 58091-9) 11.6 14.0-18.0 [facility]view[facility] blood hematocrit (volume fraction)2020-05-31 05:35:00* Test Item Value Reference Range Interpretation Comments Hematocrit (test code = 4544-3) 34.9 38.2-49.6 [facility]view[facility] erythrocyte mean corpuscular oporce5218-10-30 05:35:00* Test Item Value Reference Range Interpretation Comments Mean Corpuscular Volume (test code = 787-2) 101.7 81-99 [facility]view[facility] erythrocyte mean corpuscular hemoglobin (mass per erythrocyte)2020-05-31 05:35:00* Test Item Value Reference Range Interpretation Comments Mean Corpuscular Hemoglobin (test code = 785-6) 33.8 28-32 [facility]view[facility] erythrocyte mean corpuscular hemoglobin concentration measurement (mass/volume)2020-05-31 05:35:00* Test Item Value Reference Range Interpretation Comments Mean Corpuscular Hemoglobin Concent (test code = 786-4) 33.2 31-35 [facility]viewRDW LslSw-Vzy9255-42-20 05:35:00* Test Item Value Reference Range Interpretation Comments Red Cell Distribution Width (test code = 18161-3) 13.5 11.7 -14.4 [facility]view[facility] blood platelet count (count/volume)2020-05-31 05:35:00* Test Item Value Reference Range Interpretation Comments Platelet Count (test code = 777-3) 154 140-360 [facility] count as percentage of total ojsnlhzqtz0804-81-00 05:35:00* Test Item Value Reference Range Interpretation Comments Neutrophils (%) (Auto) (test code = 42295-4) 71.4 38.7-80.0 [facility]Aut[facility] lymphocyte count as percentage ot total xrcdmyzwfb5855-43-38 05:35:00* Test Item Value Reference Range Interpretation Comments Lymphocytes (%) (Auto) (test code = 736-9) 14.5 18.0-39.1 [facility]viewAutom[facility] blood monocyte count as percentage of total sdapauujlk7493-36-91 05:35:00* Test Item Value Reference Range Interpretation Comments Monocytes (%) (Auto) (test code = 5905-5) 7.5 4.4-11.3 [facility]view[facility] blood eosinophil count as percentage of total kkvkukmdqv0069-12-99 05:35:00* Test Item Value Reference Range Interpretation Comments Eosinophils (%) (Auto) (test code = 713-8) 5.0 0.0-6.0 [facility]viewAutom[facility] blood basophil count as percentage of total csrngwvoql2358-86-32 05:35:00* Test Item Value Reference Range Interpretation Comments Basophils (%) (Auto) (test code = 706-2) 0.9 0.0-1.0 [facility]viewFluoroscopic procedure less than one hour fnugaqll1322-43-96 05:35:00* Test Item Value Reference Range Interpretation Comments IM GRANULOCYTES % (test code = IM GRANULOCYTES %) 0.7 0.0- 1.0 [facility]view[facility] blood neutrophil count 2020-05-31 05:35:00* Test Item Value Reference Range Interpretation Comments Neutrophils # (Auto) (test code = 751-8) 3.2 2.1-6.9 [facility]view[facility] lymphocytes count (number/volume) 2020-05-31 05:35:00* Test Item Value Reference Range Interpretation Comments Lymphocytes # (Auto) (test code = 92481-6) 0.6 1.0-3.2 [facility]view[facility] monocytes automated count (number/volume)2020-05-31 05:35:00* Test Item Value Reference Range Interpretation Comments Monocytes # (Auto) (test code = 742-7) 0.3 0.2-0.8 [facility]viewAutom[facility] blood eosinophil count 2020-05-31 05:35:00* Test Item Value Reference Range Interpretation Comments Eosinophils # (Auto) (test code = 711-2) 0.2 0.0-0.4 [facility]viewAutom[facility] blood basophil count (count/volume)2020-05-31 05:35:00* Test Item Value Reference Range Interpretation Comments Basophils # (Auto) (test code = 704-7) 0.0 0.0-0.1 [facility]viewFluoroscopic procedure less than one hour lwmzuemw2059-92-16 05:35:00* Test Item Value Reference Range Interpretation Comments Absolute Immature Granulocyte (auto (sri t code = Absolute Immature Granulocyte (auto) 0.03 0-0.1 [facility] or plasma sodium measurement (moles/volume)2020-05-31 05:33:00* Test Item Value Reference Range Interpretation Comments Sodium Level (test code = 2951-2) 140 136-145 [facility]erum or plasma potassium measurement (moles/volume)2020-05-31 05:33:00* Test Item Value Reference Range Interpretation Comments Potassium Level (test code = 2823-3) 4.2 3.5-5.1 [facility] Hospitalerum or plasma chloride measurement (moles/volume)2020-05-31 05:33:00* Test Item Value Reference Range Interpretation Comments Chloride Level (test code = 2075-0) 104 98-107 [facility]erum or plasma carbon dioxide, total measurement (moles/volume)2020-05-31 05:33:00* Test Item Value Reference Range Interpretation Comments Carbon Dioxide Level (test code = 2028-9) 26 22-29 [facility] Hospitalerum or plasma anion psp0719-86-91 05:33:00* Test Item Value Reference Range Interpretation Comments Anion Gap (test code = 53781-9) 14.2 8-16 [facility] Hospitalerum or plasma urea nitrogen measurement (mass/volume)2020-05-31 05:33:00* Test Item Value Reference Range Interpretation Comments Blood Urea Nitrogen (test code = 3094-0) 16 7-26 [facility]erum or plasma creatinine measurement (mass/volume)2020-05-31 05:33:00* Test Item Value Reference Range Interpretation Comments Creatinine (test code = 2160-0) 0.86 0.72-1.25 [facility] Hospitalerum or plasma urea nitrogen/creatinine mass koomi5604-44-66 05:33:00* Test Item Value Reference Range Interpretation Comments BUN/Creatinine Ratio (test code = 3097-3) 19 6-25 [facility]viewEstimated glomerular filtration rate (GFR) bumbiimhlltzn8228-00-52 05:33:00* Test Item Value Reference Range Interpretation Comments Estimat Glomerular Filtration Rate (test code = 365828370) > 60 >60 Ranges were taken from the National Kidney Disease Education Program and the [facility] Kidney Foundation literature.Reference ranges:60 or greater: Lixyna77-83 ( for 3 consecutive months): Chronic kidney disease 15 or less: Kidney failureCovenant Health PlainviewGlucose kvzedecgelj7946-60-68 05:33:00* Test Item Value Reference Range Interpretation Comments Glucose Level (test code = NBY8150) 90 74-118 [facility] Hospitalerum or plasma calcium measurement (mass/volume)2020-05-31 05:33:00* Test Item Value Reference Range Interpretation Comments Calcium Level (test code = 45100-6) 8.6 8.4-10.2 [facility] Hospitalerum or plasma total bilirubin measurement (mass/volume)2020-05-31 05:33:00* Test Item Value Reference Range Interpretation Comments Total Bilirubin (test code = 1975-2) 0.9 0.2-1.2 [facility]viewFluoroscopic procedure less than one hour zvathccr8504-89-93 05:33:00* Test Item Value Reference Range Interpretation Comments Aspartate Amino Transf (AST/SGOT) (test code = Aspartate Amino Transf (AST/SGOT)) 20 5-34 [facility] Hospitalerum or plasma alanine aminotransferase measurement (enzymatic activity/volume)2020-05-31 05:33:00* Test Item Value Reference Range Interpretation Comments Alanine Aminotransferase (ALT/SGPT) (test code = 1742-6) 18 0-55 [facility] Hospitalerum or plasma protein measurement (mass/volume)2020-05-31 05:33:00* Test Item Value Reference Range Interpretation Comments Total Protein (test code = 2885-2) 6.1 6.5-8.1 [facility] Hospitalerum or plasma albumin measurement (mass/volume)2020-05-31 05:33:00* Test Item Value Reference Range Interpretation Comments Albumin (test code = 1751-7) 4.0 3.5-5.0 [facility]viewPlasma globulin measurement (mass/volume) 2020-05-31 05:33:00* Test Item Value Reference Range Interpretation Comments Globulin (test code = 56318-0) 2.1 2.3-3.5 [facility] Hospitalerum or plasma albumin/globulin mass tkshw7210-94-73 05:33:00* Test Item Value Reference Range Interpretation Comments Albumin/Globulin Ratio (test code = 1759-0) 1.9 0.8-2.0 [facility] Hospitalerum or plasma alkaline phosphatase measurement (enzymatic activity/volume)2020-05-31 05:33:00* Test Item Value Reference Range Interpretation Comments Alkaline Phosphatase (test code = 6768-6) 81 40-150 [facility] Hospitalerum or plasma triglyceride measurement (mass/volume)2020-05-31 05:33:00* Test Item Value Reference Range Interpretation Comments Triglycerides Level (test code = 2571-8) 267 0-149 [facility] Hospitalerum or plasma cholesterol measurement (mass/volume)2020-05-31 05:33:00* Test Item Value Reference Range Interpretation Comments Cholesterol Level (test code = 2093-3) 179 0-199 Less than 200 mg/dL Low Oylu300 - 239 mg/dL Borderline Pjeb023 m g/dl and greater High Risk [facility] Hospitalerum or plasma cholesterol in LDL measurement (mass/volume) 2020-05-31 05:33:00* Test Item Value Reference Range Interpretation Comments LDL Cholesterol (test code = 2089-1) 84 60-130 [facility] Hospitalerum or plasma cholesterol in HDL measurement (mass/volume)2020-05-31 05:33:00* Test Item Value Reference Range Interpretation Comments HDL Cholesterol (test code = 2085-9) 42 40-60 [facility] Hospitalerum or plasma total cholesterol/cholesterol in HDL mass yocue8966-21-10 05:33:00* Test Item Value Reference Range Interpretation Comments Cholesterol/HDL Ratio (test code = 9830-1) 4.3 3.9-4.7 [facility] Hospitalerum or plasma creatine kinase measurement (enzymatic activity/volume)2020-05-31 00:10:00* Test Item Value Reference Range Interpretation Comments Creatine Kinase (test code = 2157-6) 85 30-200 [facility] Hospitalerum or plasma creatine kinase MB measurement (mass/volume)2020-05-31 00:10:00* Test Item Value Reference Range Interpretation Comments Creatine Kinase MB (test code = 16601-2) 2.30 0-5.0 [facility]viewTroponin I measurement by highly sensitive enzyme wtfarxdnotu3877-69-40 00:10:00* Test Item Value Reference Range Interpretation Comments Troponin I (test code = 55385-5) 0.003 0-0.300 [facility]viewCHEST SINGLE (PORTABLE)2020-05-30 13:58:00 [facility] [address] [place] [address] Patient Name: SARA DOE MR #: [id number] : 1945 Age/Sex: 74/M Req #: [id number] Adm Physician: CHELSEA BAXTER MD Ordered by: KIERRA STORM MD Report #: [id number] Location: MED/SURG Room/Bed: [facility] Procedure: [id number] DX/CHEST SINGL E (PORTABLE) Exam Date: 05/30/20 Exam Time: 1104 REPORT STATUS: Signed EXAMINATION: CHEST SINGLE (PORTABLE) INDICATION: [id number] 1104 C OMPARISON: None FINDINGS: TUBES and LINES: None. LUNGS : Normal lung volumes. Lungs are clear. No consolidations. PLEURA: No p leural effusion or pneumothorax. HEART AND MEDIASTINUM: Mildly enlarged ca rdiac silhouette, may be accentuated by radiographic technique. Otherwise, med iastinum is unremarkable. BONES AND SOFT TISSUES: No acute osseous lesion . Soft tissues are unremarkable. UPPER ABDOMEN: No free air under the di aphragm. IMPRESSION: 1. Mildly enlarged cardiac silhouette, may be exaggerated by radiographic technique. 2. Lungs are clear. S igned by: Dr. Darryl Rincon M.D. on 05/30/2020 2:00 PM Dictated By: KAREN RINCON MD 1400 T ranscribed By: ELMER on 05/30/20 1400 COPY TO: KIERRA STORM MD Fluoroscopic procedure less than one hour yyjwyrjz4180-80-48 10:40:00* Test Item Value Reference Range Interpretation Comments Differential Total Cells Counted (test code = Differdaljit tial Total Cells Counted) 100 [facility] blood neutrophils/100 leukocytes 2020-05-30 10:40:00* Test Item Value Reference Range Interpretation Comments Neutrophils % (Manual) (test code = 79549-2) 64 40-74 [facility] blood band neutrophils form/100 azcdyahzif6482-39-32 10:40:00* Test Item Value Reference Range Interpretation Comments Band Neutrophils % (test code = 764-1) 6 [facility] blood lymphocytes/100 leukocytes 2020-05-30 10:40:00* Test Item Value Reference Range Interpretation Comments Lymphocytes % (Manual) (test code = 737-7) 16 19-48 [facility] blood monocytes/100 leukocytes 2020-05-30 10:40:00* Test Item Value Reference Range Interpretation Comments Monocytes % (Manual) (test code = 744-3) 9 3.4-9.0 [facility] blood eosinophil count as percentage of total engkdqjrhr3789-70-23 10:40:00* Test Item Value Reference Range Interpretation Comments Eosinophils % (Manual) (test code = 714-6) 5 0-7 [facility] platelets count by estimate (number/volume)2020-05-30 10:40:00* Test Item Value Reference Range Interpretation Comments Platelet Estimate (test code = 58855-5) ADEQUATE [facility]viewPlatelet naxizfxfko4406-26-96 10:40:00* Test Item Value Reference Range Interpretation Comments Platelet Morphology Comment (test code = 38777-3) NORMAL [facility]viewRBC zcumwtbbcm7292-92-76 10:40:00* Test Item Value Reference Range Interpretation Comments Red Cell Morphology Comment (test code = 6742-1) NORMAL [facility]viewProthrombin time (PT) in platelet poor plasma by coagulation mgsls7615-01-43 10:40:00* Test Item Value Reference Range Interpretation Comments Prothrombin Time (test code = 5902-2) 12.5 11.9-14.5 [facility]viewINR in Platelet poor plasma by Coagulation xggzq2066-02-18 10:40:00* Test Item Value Reference Range Interpretation Comments Prothromb Time International Ratio (test code = 6301-6) 0.89 Oral Anticoagulant Therapy INR Values:1. Low Intensity Therapy 1.5 - 2.02 . Moderate Intensity Therapy 2.0 - 3.03. High Intensity Therapy(1) 2.5 - 3. 54. High Intensity Therapy(2) 3.0 - 4.05. Panic Value INR > 5.0 [facility] PlainviewActivated partial thromboplastin time (aPTT) in platelet poor plasma by coagulation spmvj2391-50-75 10:40:00* Test Item Value Reference Range Interpretation Comments Activated Partial Thromboplast Time (test code = 89742-0) 23.8 23.8-35.5 [facility]viewBNP Wwi-nQqy2330-17-19 10:40:00* Test Item Value Reference Range Interpretation Comments B-Type Natriuretic Peptide (test code = 94718-5) 25.9 0-100 [facility] [id number] 06:32:37 C Urine Added by [email or web address] growth at 24 hours. No growth at 48 hours. Urinalysis Hsemlvfpyoz8828-14-53 10:40:20* Test Item Value Reference Range Interpretation Comments UA WBC (test code = UA WBC) 11-19 0-5 A UA RBC (test code = UA RBC) 0-5 0-5 UA Squam Epithelial (test code = UA Squam Epithelial) 6-10 A Urinalysis with Culture, if uoabjdngm1590-09-09 10:38:03* Test Item Value Reference Range Interpretation Comments UA Color (test code = UA Color) YELLO Yellow UA Appear (test code = UA Appear) SCLD Clear A UA pH (test code = UA pH) 6.0 UA Spec Grav (test code = UA Spec Grav) 1.025 1.001-1.035 UA Glucose (test code = UA Glucose) NEG Negative UA Bili (test code = UA Bili) NEG Negative UA Ketones (test code = UA Ketones) NEG Negative UA Blood (test code = UA Blood) TR Negative A UA Protein (test code = UA Protein) 30 mg/dL N UA Urobilinogen (test code = UA Urobilinogen) .2 mg/dL >0.2 UA Nitrite (test code = UA Nitrite) NEG Negative UA Leuk Est (test code = UA Leuk Est) SML Negative A UA Micro Ind? 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 Specimen InformationSpecimen Source: UrineSpecimen Site: Clean catch [place] MethodistECG Pre/Post [id number] 21:08:15* Test Item Value Reference Range Interpretation Comments Ventricular rate (test code = 253) 59 Atrial rate (test code = 255) 59 ME interval (test code = 266) 364 QRSD interval (test code = 260) 88 QT interval (test code = 264) 406 QTC interval (test code = 265) 401 P axis 1 (test code = 267) 43 QRS axis 1 (test code = 268) 49 T wave axis (test code = 270) 38 EKG impression (test code = 273) Sinus bradycardia wit h 1st degree AV block- Otherwise normal ECG-In automated comparison with ECG of 28-JAN-2019 18:07,-No significant change was found- [place] MethodistUrinalysis screen and microscopy, with reflex to culture 2019-08-22 18:24:57* Test Item Value Reference Range Interpretation Comments Specimen site (test code = 1409219) Clean catch Color, UA (test code = 5778-6) Becky Appearance, UA (test code = 5767-9) Clear Specific gravity, UA (test code = 5811-5) 1.015 1.001-1.035 pH, UA (test code = 5803-2) 7.0 5.0-8.5 Protein, UA (test code = 99692-3) Negative Negative Glucose, UA (test code = 84123-1) Negative Negative Ketones, UA (test code = 2514-8) Negative Negative Bilirubin, UA (test code = 5770-3) Negative Negative Blood, UA (test code = 5794-3) Negative Negative Nitrite, UA (test code = 5802-4) Positive Negative A Urobilinogen, UA (test code = 24523-5) 4.0 <2.0 A Leukocyte esterase, UA (test code = 5799-2) Negative Negative Epithelial cells, UA (test code = 5787-7) 1 /HPF WBC, UA (test code = 5821-4) 3 0- 1 /HPF H RBC, UA (test code = 06833-7) 1 0- 5 /HPF Bacteria, UA (test code = 98413-7) Few None seen Yeast, UA (test code = 90015-2) None seen Yeast with pseudohyphae, UA (test code = 48285-9) None seen Lab Interpretation (test code = 86363-9) Abnormal [place] [facility]Com[facility] cmshb7558-97-19 13:32:59* Test Item Value Reference Range Interpretation Comments Sodium (test code = 2951-2) 139 135- 148 mEq/L Potassium (test code = 2823-3) 4.1 3.5- 5.0 mEq/L Chloride (test code = 5-0) 102 98- 112 mEq/L CO2 (test code = 2027-9) 26 24- 31 mEq/L Anion gap (test code = 74209-4) 11@ANIO 7- 15 mEq/L BUN (test code = 3094-0) 15 mg/dL 8-23 Creatinine (test code = 2160-0) 1.01 mg/dL 0.7-1.2 Glucose (test code = 2345-7) 98 mg/dL 65-99 Calcium (test code = 00158-1) 9.5 mg/dL 8.8-10.2 Protein (test code = 2885-2) 6.9 g/dL 6.3-8.3 Cinxngb5222.6-7.0 g/dL1 argb7659.4-7.6 g/dL7 months-5tali478.1-7.3 g/dL1-2 zidjo739.6-7.5 g/dL>3 lwybv603.0-8.0 g/dC89-0690661.3-8.3 g/dL Albumin (test code = 1751-7) 4.0 g/dL 3.5-5 A/G ratio (test code = 1759-0) 1.4 0.7-3.8 Alkaline phosphatase (test code = 6768-6) 87 U/L 40-129 AST (test code = 1920-8) 16 U/L 10-50 ALT (test code = 1742-6) 14 U/L 5-50 Total bilirubin (test code = 1974-) 0.4 mg/dL 0-1.2 [place] MethodistEstimated [id number] 13:32:58* Test Item Value Reference Range Interpretation Comments Estimated GFR (test code = 5488) 73 mL/min/1.73 m2 Catergory Units InterpretationG1 >=90 Normal or highG2 60-89 Mildly aamidkjsiC1y 45-59 Mildly to moderately uoznwftubT0r 30-44 Moderately to severely decreasedG4 15-29 Severely decreasedG5 <15 Kidney failureThe eGFR was calculated using the Chronic Kidney Disease Epidemiology Collaboration (CKD-EPI) equation. Interpretation is based on recommendations of the National Kidney Foundation-Kidney Disease Outcomes Quality Initiative (NKF-KDOQI) published in 2014. [place] MethodistCBC with platelet and inmouasbjilj1365-29-27 13:01:56* Test Item Value Reference Range Interpretation Comments WBC (test code = 73298-8) 4.45 4.50- 11.00 k/uL L RBC (test code = 00591-7) 3.53 m/uL 4.4-6 L HGB (test code = 718-7) 11.0 g/dL 14-18 L HCT (test code = 4544-3) 34.2 % 41-51 L MCV (test code = 787-2) 96.9 fL 82-100 MCH (test code = 785-6) 31.2 pg 27-34 MCHC (test code = 786-4) 32.2 g/dL 31-37 RDW - SD (test code = 65644-4) 45.4 fL 37-55 MPV (test code = 17534-8) 9.4 fL 8.8-13.2 Platelet count (test code = 46708-5) 179 150- 400 k/uL Nucleated RBC (test code = 61110-0) 0.00 /100 WBC Neutrophils (test code = 89419-8) 69.4 % 39-69 H Lymphocytes (test code = 17403-7) 16.2 % 25-45 L Monocytes (test code = 37634-6) 7.2 % 0-10 Eosinophils (test code = 39595-5) 6.1 % 0-5 H Basophils (test code = 45699-7) 0.7 % 0-1 Immature granulocytes (test code = 49895-5) 0.4 % 0-1 "Immature granulocytes" (promyelocytes, myelocytes, metamyelocytes) Lab Interpretation (test code = 39314-4) [facility] jtalnjx9645-42-44 05:39:04* Test Item Value Reference Range Interpretation Comments Case number (test code = 8612716) [id number] Surgical pathology report (test code = 2255) See link below for PDF Lab Report Result status (test code = 6733475) This is Final Report for [id number] 1415-2 [facility] FubvnlpziMlbozs7713-09-70 13:18:31Neema Prado CRNA 07/22/2019 1:19 PMAirwayDate/Time: 07/22/2019 12:56 PMPerformed by: Neema Prado CRNAAuthorized by: Weston Koroma MD Location: ORPreoxygenated with 100% O2: Yes Mask Ventilation: Assisted mask (OPA)Final Airway Type: Supraglottic airwayFinal LMA: I-GelLMA Size: 5Number of Attempts at Approach: 1 Preoxygenation >3 minEyes taped at LOCGentle mask ventilation with OPAEasy, atraumatic iGel placementDentition unchanged and intact [facility] Nondenominational Urinalysis Dsdxllktkdw7737-06-72 14:22:03* Test Item Value Reference Range Interpretation Comments UA WBC (test code = UA WBC) 0-5 0-5 UA RBC (test code = UA RBC) 6-10 0-5 A UA Squam Epithelial (test code = UA Squam Epithelial) 11-19 A Urinalysis with Culture, if ohzulnkij0363-28-81 13:58:31* Test Item Value Reference Range Interpretation Comments UA Color (test code = UA Color) BECKY Yellow A UA Appear (test code = UA Appear) CLEAR Clear UA pH (test code = UA pH) 5 N UA Spec Grav (test code = UA Spec Grav) 1.018 1.001-1.035 UA Glucose (test code = UA Glucose) NEG Negative UA Bili (test code = UA Bili) NEG Negative UA Ketones (test code = UA Ketones) NEG Negative UA Blood (test code = UA Blood) 150 cells/mcL Negative A UA Protein (test code = UA Protein) NEG Negative UA Urobilinogen (test code = UA Urobilinogen) 0.2 mg/dL N UA Nitrite (test code = UA Nitrite) NEG Negative UA Leuk Est (test code = UA Leuk Est) NEG Negative UA Micro Ind? (test code = UA Micro Ind?) Indicated Not Indicate d A Result created by rule GL_SJM_UA_MICRO_IND Urine Awdfnve7170-02-91 08:16:41 C Urine Added by GL_[email or web address]_CUL_INDNo growth at 24 hours. No growth at 48 hours.Urinalysis Soekvoaggii9587-99-33 10:46:20* Test Item Value Reference Range Interpretation Comments UA WBC (test code = UA WBC) 6-10 0-5 A UA RBC (test code = UA RBC) 11-19 0-5 A UA Bacteria (test code = UA Bacteria) Few A UA Squam Epithelial (test code = UA Squam Epithelial) 6-10 A Urinalysis with Culture, if lanazrwxy4722-92-88 10:37:53* Test Item Value Reference Range Interpretation Comments UA Color (test code = UA Color) BECKY Yellow A UA Appear (test code = UA Appear) CLEAR Clear UA pH (test code = UA pH) 6.5 UA Spec Grav (test code = UA Spec Grav) 1.017 1.001-1.035 UA Glucose (test code = UA Glucose) NEG Negative UA Bili (test code = UA Bili) 1 mg/dL Negative A UA Ketones (test code = UA Ketones) NEG Negative UA Blood (test code = UA Blood) 25 cells/mcL Negative A UA Protein (test code = UA Protein) 75 mg/dL Negative A UA Urobilinogen (test code = UA Urobilinogen) .2 mg/dL >0.2 UA Nitrite (test code = UA Nitrite) POS Negative A UA Leuk Est (test code = UA Leuk Est) NEG Negative UA Micro Ind? (test code = UA Micro Ind?) Indicated Not Indicate d A Result created by rule GL_SJM_UA_MICRO_IND Urinalysis with Culture, if lscmmskrh9523-83-33 08:38:22* Test Item Value Reference Range Interpretation Comments UA Color (test code = UA Color) YELLO Yellow UA Appear (test code = UA Appear) CLEAR Clear UA pH (test code = UA pH) 6.5 UA Spec Grav (test code = UA Spec Grav) 1.006 1.001-1.035 UA Glucose (test code = UA Glucose) NEG Negative UA Bili (test code = UA Bili) NEG Negative UA Ketones (test code = UA Ketones) NEG Negative UA Blood (test code = UA Blood) NEG Negative UA Protein (test code = UA Protein) NEG Negative UA Urobilinogen (test code = UA Urobilinogen) 0.2 mg/dL N UA Nitrite (test code = UA Nitrite) NEG Negative UA Leuk Est (test code = UA Leuk Est) NEG Negative UA Micro Ind? (test code = UA Micro Ind?) Not Indicated Not Indicat ed Result created by rule GL_SJM_UA_MICRO_IND Urine [id number] 06:14:14 C Urine Added by GL_[email or web address]_CUL_INDNo growth at 24 hours. No growth at 48 hours.Urinalysis Muwjtzxtaae8419-68-49 08:32:02* Test Item Value Reference Range Interpretation Comments UA WBC (test code = UA WBC) 6-10 0-5 A UA RBC (test code = UA RBC) 0-5 0-5 UA Bacteria (test code = UA Bacteria) Few A UA Squam Epithelial (test code = UA Squam Epithelial) 6-10 A Urinalysis with Culture, if npbhvfekk2991-22-59 08:25:32* Test Item Value Reference Range Interpretation Comments UA Color (test code = UA Color) BECKY Yellow A UA Appear (test code = UA Appear) CLEAR Clear UA pH (test code = UA pH) 6.5 UA Spec Grav (test code = UA Spec Grav) 1.012 1.001-1.035 UA Glucose (test code = UA Glucose) NEG Negative UA Bili (test code = UA Bili) 1 mg/dL Negative A UA Ketones (test code = UA Ketones) NEG Negative UA Blood (test code = UA Blood) NEG Negative UA Protein (test code = UA Protein) 75 mg/dL Negative A UA Urobilinogen (test code = UA Urobilinogen) 4 mg/dL >0.2 A UA Nitrite (test code = UA Nitrite) POS Negative A UA Leuk Est (test code = UA Leuk Est) NEG Negative UA Micro Ind? (test code = UA Micro Ind?) Indicated Not Indicate d A Result created by rule GL_SJM_UA_MICRO_IND
== END 2020-05-31 13:05 | disposition home or self-care (01) | DRG 303 ==
LOC: ER 10:23 → ERHOLD 10:39 → MED/SURG 13:39
PROVIDERS: ADMIT Internal Medicine Interventional Cardiology; ATTEND Internal Medicine Interventional Cardiology
DX: I25.10 Atherosclerotic heart disease of native coronary artery without angina pectoris (principal); I10 Essential (primary) hypertension; E78.5 Hyperlipidemia, unspecified; I25.2 Old myocardial infarction; Z85.46 Personal history of malignant neoplasm of prostate; Z85.038 Personal history of other malignant neoplasm of large intestine; Z87.891 Personal history of nicotine dependence; Z95.1 Presence of aortocoronary bypass graft; Z95.5 Presence of coronary angioplasty implant and graft; Z11.59 Encounter for screening for other viral diseases
CPT/HCPCS: 36415; 71045; 80053; 80061; 82550; 82553; 83880; 84484; 85025; 85610; 85730; 93005; 93306; 99283; U0002

== ENCOUNTER 2023-01-15 16:44 | Inpatient (IN) | payer MEDICARE, BC ==
[~2023-01-15] VITALS: Ht 172.7 cm; Wt 104.3 kg
[~2023-01-15 16:44] MED LIST: B COMPLEX1 EACH PO; FLOMAX0.4 MG PO; LOSARTAN POTASS25 MG PO; NEXIUM20 MG PO; PRAVACHOL40 MG PO; PRAVASTATIN SOD40 MG PO; [UNRECOGNIZED DRUG - OTHER] PO
[2023-01-15] MEDS ORDERED: SODIUM CHLORIDE FLUSH 10 ML SYR IV PRN (17:00)
[2023-01-15 17:17] LABS: BASOPHILS % 0.8 % (0.0-1.0); EOSINOPHILS # (AUTO) 0.4 (0.0-0.4); EOSINOPHILS % 7.4 % (0.0-6.0); HEMATOCRIT 35.2 % (38.2-49.6); HEMOGLOBIN 11.6 g/dL (14.0-18.0); LYMPHOCYTES # (AUTO) 1.1 (1.0-3.2); LYMPHOCYTES % 22.3 % (18.0-39.1); MEAN CORPUSCULAR HEMOGLOBIN 31.6 pg (28-32); MEAN CORPUSCULAR VOLUME 95.9 fL (81-99); MONOCYTES # (AUTO) 0.4 (0.2-0.8); MONOCYTES % 7.2 % (4.4-11.3); NEUTROPHILS % 61.9 % (38.7-80.0); PLATELET COUNT 170 x10e3/uL (140-360); RED BLOOD COUNT 3.67 x10e6/uL (4.3-5.7); RED CELL DISTRIBUTION WIDTH 13.4 % (11.7-14.4)
[2023-01-15] MEDS ORDERED: ONDANSETRON HCL INJ 2MG/ML 2ML 2 MG/ML VIAL IV PRN (17:30)
[2023-01-15 17:38] LABS: ALBUMIN 3.9 g/dL (3.5-5.0); ALBUMIN/GLOBULIN RATIO 1.4 (0.8-2.0); ANION GAP 13.8 mmol/L (8-16); CALCIUM 9.2 mg/dL (8.4-10.2); CREATININE, SERUM 1.11 mg/dL (0.72-1.25); POTASSIUM 3.8 mmol/L (3.5-5.1)
[2023-01-15] MEDS: SODIUM CHLORIDE 0.9% 1000ML 1,000 ML IV SCH (23:30)
[2023-01-16] VITALS (18 sets, daily range): BP systolic 135–174; BP diastolic 56–81; PULSE 59–66; RESP 13–19; TEMP 96.7–98.4; O2SAT 93–99
[2023-01-16 04:46] LABS: BASOPHILS % 0.9 % (0.0-1.0); EOSINOPHILS # (AUTO) 0.4 (0.0-0.4); HEMATOCRIT 33.4 % (38.2-49.6); HEMOGLOBIN 10.9 g/dL (14.0-18.0); LYMPHOCYTES # (AUTO) 0.9 (1.0-3.2); LYMPHOCYTES % 19.9 % (18.0-39.1); MEAN CORPUSCULAR HEMOGLOBIN 31.5 pg (28-32); MEAN CORPUSCULAR HGB CONC 32.6 g/dL (31-35); MEAN CORPUSCULAR VOLUME 96.5 fL (81-99); MONOCYTES # (AUTO) 0.4 (0.2-0.8); MONOCYTES % 8.4 % (4.4-11.3); NEUTROPHILS # (AUTO) 2.7 (2.1-6.9); NEUTROPHILS % 62.6 % (38.7-80.0); PLATELET COUNT 159 x10e3/uL (140-360); RED BLOOD COUNT 3.46 x10e6/uL (4.3-5.7); RED CELL DISTRIBUTION WIDTH 13.3 % (11.7-14.4)
[2023-01-16 05:02] LABS: ALBUMIN 3.7 g/dL (3.5-5.0); ALBUMIN/GLOBULIN RATIO 1.5 (0.8-2.0); ANION GAP 9.7 mmol/L (8-16); CALCIUM 8.9 mg/dL (8.4-10.2); CREATININE, SERUM 0.95 mg/dL (0.72-1.25); POTASSIUM 3.7 mmol/L (3.5-5.1)
[2023-01-16 05:09] LABS: CREATINE KINASE MB 2.2 ng/mL (0-5.0)
[2023-01-16 07:27] LABS: CHOL/HDL RATIO 5.6 (3.9-4.7)
[2023-01-16] MEDS: PANTOPRAZOLE SOD 40 MG TABEC PO SCH (07:30)
[2023-01-16] MEDS: LOSARTAN POTASSIUM 25 MG TAB PO SCH (09:00)
[2023-01-16] MEDS ORDERED: LIDOCAINE 1% W/EPINEPHRINE 20 ML VIAL ONE (09:15)
[2023-01-16] MEDS ORDERED: Vancomycin IV 1 GM VIAL ONE (09:15)
[2023-01-16] MEDS ORDERED: LIDOCAINE HCL 2% LOCAL 20 ML VIAL ONE ×2 (09:15→10:13)
[2023-01-16] MEDS ORDERED: GENTAMICIN SULFATE 40 MG/ML 2 ML VIAL ONE (09:15)
[2023-01-16] MEDS ORDERED: MIDAZOLAM HCL 2 MG/2 ML VIAL ONE ×3 (09:16→10:37)
[2023-01-16] MEDS ORDERED: SODIUM CHLORIDE 0.9% 250ML 250 ML ONE (09:16)
[2023-01-16] MEDS ORDERED: SODIUM CHLORIDE 0.9% 1000ML 3,000 ML ONE (09:16)
[2023-01-16] MEDS ORDERED: FENTANYL CITRATE/PF 100MCG/2 ML INJ ONE (09:17)
[2023-01-16] MEDS: SODIUM CHLORIDE 0.9% 1000ML 1,000 ML IV SCH ×2 (09:30→23:30)
[2023-01-16] MEDS ORDERED: Morphine 2mg Syringe 2 MG/ML SYR IV PRN (13:30)
[2023-01-16 13:57] LABS: CREATINE KINASE MB 3.3 ng/mL (0-5.0)
[2023-01-16] MEDS: CEFAZOLIN SODIUM 2 GM in SODIUM CHLORIDE 0.9% 100 ML IV SCH (16:39)
[2023-01-16] MEDS ORDERED: SIMVASTATIN 20 MG TAB PO SCH (21:00)
[2023-01-16] MEDS ORDERED: PRAVASTATIN 20 MG TAB PO SCH (21:00)
[2023-01-17] VITALS (11 sets, daily range): BP systolic 138–167; BP diastolic 57–80; PULSE 49–119; RESP 12–21; TEMP 97.7–98; O2SAT 79–98
[2023-01-17] MEDS: CEFAZOLIN SODIUM 2 GM in SODIUM CHLORIDE 0.9% 100 ML IV SCH ×2 (00:07→07:53)
[2023-01-17] MEDS: SODIUM CHLORIDE 0.9% 1000ML 1,000 ML IV SCH (05:30)
[2023-01-17] MEDS: LOSARTAN POTASSIUM 25 MG TAB PO SCH (07:52)
[2023-01-17] MEDS: PANTOPRAZOLE SOD 40 MG TABEC PO SCH (07:53)
== END 2023-01-17 16:52 | disposition home or self-care (01) | DRG 244 ==
LOC: ER 16:50 → ERHOLD 17:23 → ICU 01-16 13:14
PROVIDERS: ADMIT Family Medicine; ATTEND Family Medicine
PROC: 0JH606Z Insertion of Pacemaker, Dual Chamber into Chest Subcutaneous Tissue and Fascia, Open Approach (ICD-10-PCS; principal; 2023-01-16)
PROC: 02H63JZ Insertion of Pacemaker Lead into Right Atrium, Percutaneous Approach (ICD-10-PCS; 2023-01-16)
PROC: 02HK3JZ Insertion of Pacemaker Lead into Right Ventricle, Percutaneous Approach (ICD-10-PCS; 2023-01-16)
DX: I44.2 Atrioventricular block, complete (principal); I25.10 Atherosclerotic heart disease of native coronary artery without angina pectoris; I10 Essential (primary) hypertension; E78.5 Hyperlipidemia, unspecified; I25.2 Old myocardial infarction; N40.0 Benign prostatic hyperplasia without lower urinary tract symptoms; K21.00 Gastro-esophageal reflux disease with esophagitis, without bleeding; I49.5 Sick sinus syndrome; Z95.5 Presence of coronary angioplasty implant and graft; Z95.1 Presence of aortocoronary bypass graft; Z20.822 Contact with and (suspected) exposure to COVID-19
CPT/HCPCS: 33208; 36415; 71045; 80053; 80061; 82550; 82553; 83880; 84484; 85025; 93005; 99152; 99153; 99285; C1769; C1785; C1898; J1580; J2001; J2250; J7030; J7050